=== PATIENT | female | born 1990 | race Caucasian/White ===

== ENCOUNTER 2021-01-27 14:21 | Outpatient (REF) | payer OTHER, SELFPAY ==
[2021-01-27 15:24] LABS: COVID-19 Test Negative (Negative)
== END 2021-01-27 14:22 | disposition home or self-care (01) ==
LOC: HO.LAB 14:21
PROVIDERS: Visit Provider Internal Medicine
DX: Z20.822 Contact with and (suspected) exposure to COVID-19 (principal)
CPT/HCPCS: 36415; 87635; C9803